=== PATIENT | female | born 1950 | race Caucasian/White ===

== ENCOUNTER 2022-09-16 09:38 | Inpatient (IN) | payer OTHER ==
[~2022-09-16] VITALS: Ht 170.2 cm; Wt 72.1 kg
[2022-09-17] MEDS ORDERED: LEVOTHYROXINE25 MCG PO (14:47)
[2022-09-22] MEDS ORDERED: MAXIMUM D3325 MCG (08:24)
[2022-09-25] MEDS ORDERED: HYOSCYAMINE0.125 M1 SL (12:34)
[2022-09-25] MEDS ORDERED: TRAM1TAB98 PO (12:34)
== END 2022-09-25 16:06 | DRG 331 ==
LOC: SURH 09-22 06:17 → O/R 09-22 06:17 → SURG 09-22 10:15 → SURH 09-22 10:22 → SURG 09-22 14:30 → SURH 09-25 16:06
PROVIDERS: ADMIT Surgery; ATTEND Surgery
PROC: 07BC4ZX Excision of Pelvis Lymphatic, Percutaneous Endoscopic Approach, Diagnostic (ICD-10-PCS; 2022-09-22)
PROC: 0DTF4ZZ Resection of Right Large Intestine, Percutaneous Endoscopic Approach (ICD-10-PCS; principal; 2022-09-22 14:30)
DX: K92.1 Melena (principal); D12.3 Benign neoplasm of transverse colon; D12.0 Benign neoplasm of cecum; D37.4 Neoplasm of uncertain behavior of colon

== ENCOUNTER 2022-10-11 12:07 | Emergency (ER) | payer OTHER ==
[~2022-10-11] VITALS: Ht 170.2 cm; Wt 68.9 kg
[~2022-10-11 12:07] MED LIST: HYOSCYAMINE0.125 M1 SL; LEVOTHYROXINE25 MCG PO; MAXIMUM D3325 MCG; TRAM1TAB98 PO
== END 2022-10-11 14:32 | disposition home or self-care (01) ==
LOC: ER 12:07
PROVIDERS: General Practice
DX: R53.81 Other malaise (principal); I95.9 Hypotension, unspecified; Z88.1 Allergy status to other antibiotic agents